=== PATIENT | female | born 1985 | race Caucasian/White ===

== ENCOUNTER 2017-10-07 16:10 | Emergency (ER) | payer OTHER, MEDICAID ==
[2016-10-26 10:45] VITALS: Ht 160 cm; Wt 86.2 kg
[~2017-10-07] VITALS: Ht 160 cm; Wt 86.2 kg
[~2017-10-07 16:10] MED LIST: AMOX-559 PO; BENZ100C4 PO; CODE118S5 PO; HYDR-4309 PO; IBUP600T22 PO; IBUP800T37 PO; LOR5 PO; LOR5/325 PO; METF-410 PO; ONDA4TAB PO; OSE75 PO; OXYC-865 PO; PER PO; PHEN-460 PO; PROC10TA4 PO
--- NOTE | 2017-10-07 16:15 | ER Report ---
History and Physical Time Seen By MD: 16:34 Hx. of Stated Complaint: right Shoulder pain HPI/ROS 32-year-old female states she was lifting a person had sudden pain in her right shoulder Allergies: Coded Allergies: aspirin (Verified Allergy, Severe, ANAPHYLAXIS, 12/23/16) Cephalexin Monohydrate (Verified Allergy, Mild, HIVES, 12/23/16) clarithromycin (Verified Allergy, Mild, HIVES, 12/23/16) Home Meds Active Scripts Ibuprofen (IBUPROFEN) 800 Mg Tablet, 1 TAB PO Q8H, #30 TAB Prov:EVA BEDOLLA 10/07/17 Discontinued Scripts Hydrocodone Bit/Acetaminophen (HYDROCODON-ACETAMINOPHEN 5-325) 1 Each Tablet, 1 EACH PO Q4H Y for PAIN, #12 TAB 0 Refills Prov:HERLINDA RODARTE MD 07/13/17 Amoxicillin/Pot Clav 875-125 Mg Tab (AUGMENTIN 875-125 TABLET) 1 Each Tablet, 1 TAB PO Q12H for 7 Days, #14 TAB 0 Refills Prov:HERLINDA RODARTE MD 07/13/17 Past Medical/Surgical History History of in the past Hx Smoking: Yes (1/2 PPD X 8 YRS ) Smoking Status: Current: Every Day Smoker Exposure to Second Hand Smoke?: Yes Hx Substance Use Disorder: No Family History of: HTN Constitutional Vital Sign - Last 24 Hours 10/07/17 16:18 Temp 97.8 Pulse 86 Resp 14 B/P (MAP) 140/94 Pulse Ox 96 O2 Delivery Room Air Physical Exam 32-year-old female alert and oriented mild distress HEENT head normocephalic/ atraumatic tympanic membranes are non-reddened throat is non-reddened neck is supple heart rate regular no murmurs rubs or gallops lungs clear to auscultation , right shoulder with pain with movement cms intact distally . Medical Decision Making EKG/Imaging Imaging FACILITY: [facility] PATIENT NAME: Mariana Escobedo : 1985 MR: [id number] V: [id number] EXAM DATE: [id number] ORDERING PHYSICIAN: EVA BEDOLLA TECHNOLOGIST: Location: [facility] Patient: Mariana Escobedo : 1985 Visit/Account:[id number] Date of Sevice: 10/07/2017 Exam type: SHOULDER MIN 2 VIEWS RIGHT History: Insert right shoulder while lifting at work, anterior pain Comparison: None. Findings: Two views of the right shoulder reveal no evidence of acute fracture dislocation or significant arthritic change. The right AC joint appears intact. IMPRESSION: 1. No acute osteoarticular abnormality of the right shoulder seen Report Dictated By: Tata Encarnacion MD at 10/07/2017 4:56 PM Report E-Signed By: Tata Encarnacion MD at 10/07/2017 4:57 PM WSN:[email or web address] ED Course/Re-evaluation ED Course given norco 2 po for pain xray is negative will put in sling rx for motrin and f /u pcp Re-evaluation pain is much better after norco Decision to Disposition Date: Oct 07, 2017 Decision to Disposition Time: 17:12 Depart Departure Latest Vital Signs Vital Signs Date Time Temp Pulse Resp B/P (MAP) Pulse Ox O2 Delivery O2 Flow Rate FiO2 10/07/17 16:18 97.8 86 14 140/94 96 Room Air Impression: Primary Impression: Right shoulder strain Condition: Improved Disposition: HOME OR SELF-CARE Referrals: JACKI HUERTA PA-C (PCP) 5 Days New Scripts Ibuprofen (IBUPROFEN) 800 Mg Tablet 1 TAB PO Q8H, #30 TAB Prov: EVA BEDOLLA 10/07/17 Patient Instructions: Muscle Strain (DC) Additional Instructions: Wear sling ice to shoulder 20 minutes 4 times a day follow-up give primary care physician if still having pain after one week EVA BEDOLLA Oct 07, 2017 16:15
[2017-10-07] MEDS ORDERED: APAP/HYDROCODONE 325/5 TAB PO ONE (16:35)
[2017-10-07 17:00] VITALS: BP 108/63
--- NOTE | 2017-10-07 17:01 | RADIOLOGY IMAGING REPORT ---
FACILITY: [facility] [place] PATIENT NAME: Mariana Escobedo : 1985 MR: [id number] V: [id number] EXAM DATE: ORDERING PHYSICIAN: EVA BEDOLLA TECHNOLOGIST: Location: [facility] Patient: Mariana Escobedo : 1985 Visit/Account:[id number] Date of Sevice: 10/07/2017 Exam type: SHOULDER MIN 2 VIEWS RIGHT History: Insert right shoulder while lifting at work, anterior pain Comparison: None. Findings: Two views of the right shoulder reveal no evidence of acute fracture dislocation or significant arthr itic change. The right AC joint appears intact. IMPRESSION: 1. No acute osteoarticular abnormality of the right shoulder seen Report Dictated By: Tata Encarnacion MD at 10/07/2017 4:56 PM Report E-Signed By: Tata Encarnacion MD at 10/07/2017 4:57 PM WSN:[email or web address]
[2017-10-07] MEDS ORDERED: IBUP800T37 PO (17:09)
== END 2017-10-07 17:18 | disposition home or self-care (01) ==
LOC: ER 16:24
DX: S46.911A Strain of unspecified muscle, fascia and tendon at shoulder and upper arm level, right arm, initial encounter (principal); X50.9XXA Other and unspecified overexertion or strenuous movements or postures, initial encounter
CPT/HCPCS: 73030; 99284; A4565

== ENCOUNTER 2017-11-02 17:47 | Emergency (ER) | payer MEDICAID, OTHER ==
[2016-10-26 10:45] VITALS: Wt 86.2 kg
--- NOTE | 2017-11-02 18:18 | ER Report ---
History and Physical Time Seen By MD: 18:17 Hx. of Stated Complaint: ALLERGY TO CATS. LEFT EYE SWOLLEN. MARIA EUGENIA NOT WORKING HPI/ROS CHIEF COMPLAINT: Left eye swelling and redness HISTORY OF PRESENT ILLNESS: 32-year-old female presents ambulatory to the ER complaining of the left eye swelling and redness. She woke up this way this morning. She reports no recent illness. She notes no visual changes. She notes no headache. She describes burning pain to the left side of her face and eye. She notes significant tearing and injection. She thinks is due to her having a cat. She describes foreign body sensation. She states she should be wearing glasses, but can't afford them. Patient showed shows a camera phone picture of her eye this morning in the upper lid was grossly swollen. It has resolved on examination now. REVIEW OF SYSTEMS: Respiratory: No cough, no dyspnea. Cardiovascular: No chest pain, no palpitations. Gastrointestinal: No vomiting, no abdominal pain. Musculoskeletal: No back pain. Allergies: Coded Allergies: aspirin (Verified Allergy, Severe, ANAPHYLAXIS, 11/02/17) Cephalexin Monohydrate (Verified Allergy, Mild, HIVES, 11/02/17) clarithromycin (Verified Allergy, Mild, HIVES, 11/02/17) Home Meds Active Scripts Ibuprofen (IBUPROFEN) 800 Mg Tablet, 1 TAB PO Q8H, #30 TAB Prov:EVA BEDOLLA 10/07/17 Reviewed Nurses Notes: Yes Old Medical Records Reviewed: Yes Hx Smoking: Yes (1/2 PPD X 8 YRS ) Smoking Status: Current: Every Day Smoker Exposure to Second Hand Smoke?: Yes Hx Substance Use Disorder: No Constitutional Vital Sign - Last 24 Hours 11/02/17 11/02/17 17:55 19:01 Temp 97.0 Pulse 82 85 Resp 14 16 B/P (MAP) 143/96 132/82 (99) Pulse Ox 99 96 O2 Delivery Room Air Room Air Physical Exam Vital signs stable, afebrile, pulse ox normal General Appearance: The patient is alert, has no immediate need for airway protection and no current signs of toxicity. No acute distress HEENT: Pupils equal and round. Fluoresceins was instilled in the left eye. There is gross injection with hyperemia of the lower lid. There were no corneal uptake or corneal abrasions noted TMs normal Respiratory: Chest is non tender, lungs are clear to auscultation. Cardiac: regular rate and rhythm Musculoskeletal: Neck: Neck is supple and non tender. No lymphadenopathy Extremities have full range of motion and are non tender. Skin: No rashes or lesions. DIFFERENTIAL DIAGNOSIS: After history and physical exam differential diagnosis was considered for conjunctivitis, allergic conjunctivitis, foreign body, corneal abrasion, iritis Medical Decision Making ED Course/Re-evaluation ED Course Patient was admitted to an examination room. H&P was done. The differential diagnoses was considered. On conical examination. Patient has an acutely red left eye. There is injection and tearing. There is no evidence of infection. She is afebrile. Patient be treated with Tobrex drops. She's given a single dose of prednisone 20 mg by mouth. She's discharged home with 2 Percocet for temporary pain relief. She is advised to continue ibuprofen and Benadryl. She is advised to follow-up with ophthalmology if unimproved in 2-3 days information was provided to contact ophthalmology. Decision to Disposition Date: Nov 02, 2017 Decision to Disposition Time: 18:39 Depart Departure Latest Vital Signs Vital Signs Date Time Temp Pulse Resp B/P (MAP) Pulse Ox O2 Delivery O2 Flow Rate FiO2 11/02/17 19:01 85 16 132/82 (99) 96 Room Air 11/02/17 17:55 97.0 Impression: Primary Impression: Allergic conjunctivitis of left eye Condition: Improved Disposition: HOME OR SELF-CARE Referrals: JACKI HUERTA PA-C (PCP) NONI JOHNSON MD Patient Instructions: Conjunctivitis (ED) Additional Instructions: Use Tobrex drops one to 2 drops 3 times a day for the next 3 days Continue ibuprofen 200 mg 3 tablets 3 times a day with food Continue Benadryl 25 mg 3 times a day Follow-up with Dr. Konstantin Johnson ribbon inker if unimproved in 3 days SOPHIA BOOKER DO Nov 02, 2017 18:18
[2017-11-02] MEDS ORDERED: FLUORESCEIN SOD 1 MG 1 EA STRP OS ONE (18:25)
[2017-11-02] MEDS ORDERED: TOBRAMYCIN/DEX OP SUSP 2.5 ML OS ONE (18:50)
[2017-11-02] MEDS ORDERED: predniSONE 20 MG TAB PO ONE (18:50)
[2017-11-02] MEDS ORDERED: oxyCODONE/ACETAMIN 5/325MG TH 2 TAB/BOTTLE PO ONE (18:50)
[2017-11-02 19:01] VITALS: BP 132/82
== END 2017-11-02 19:08 | disposition home or self-care (01) ==
LOC: ER 18:05
DX: H10.12 Acute atopic conjunctivitis, left eye (principal)
CPT/HCPCS: 99283; J7512

== ENCOUNTER 2018-03-16 14:26 | Emergency (ER) | payer MEDICAID ==
[2016-10-26 10:45] VITALS: Wt 86.2 kg
[~2018-03-16 14:26] MED LIST changes: -METF-410 PO; +METF-411 PO
[2018-03-16 14:29] VITALS: BP 135/85
--- NOTE | 2018-03-16 14:36 | ER Report ---
History and Physical Time Seen By MD: 14:36 Hx. of Stated Complaint: Sore throat x 3 days HPI/ROS CHIEF COMPLAINT: Sore throat HISTORY OF PRESENT ILLNESS: 33-year-old female patient presents to emergency room with complaint of sore throat. Patient states she's been having this pain for the past 3 days. She states that she has a history of strep throat. She states that she has not checked her temperature but was told by her that she felt feverish. She denies having any nausea, vomiting or diarrhea. Patient states she's had a slight cough. She is also noted some sinus Pressure. Patient has not taken any medication for this. She states she's not been having a hard time trying to eat or drink anything due to the pain. Last time she is something eat was last night. Allergies: Coded Allergies: aspirin (Verified Allergy, Severe, ANAPHYLAXIS, 03/16/18) Cephalexin Monohydrate (Verified Allergy, Mild, HIVES, 03/16/18) clarithromycin (Verified Allergy, Mild, HIVES, 03/16/18) Home Meds Active Scripts Promethazine HCl/Codeine (Prometh-Codein 6.25-10 mg/5 ml) 5 Ml Syrup, 1 TSP PO QHS Y for COUGH, #120 ML Prov:DIANA QUILES [facility] 03/16/18 Amoxicillin 500 Mg Tab (AMOXICILLIN 500 MG TAB) 500 Mg Tablet, 1 TAB PO BID, # 20 TAB Prov:DIANA QUILES [facility] 03/16/18 Discontinued Scripts Ibuprofen (IBUPROFEN) 800 Mg Tablet, 1 TAB PO Q8H, #30 TAB Prov:EVA BEDOLLA 10/07/17 Past Medical/Surgical History Patient has a past medical history of hypertension, asthma, cholecystitis, cervical cancer. Patient has a surgical history of a hysterectomy, , cholecystectomy, LEEP procedure, tubal ligation. Patient has a family medical history of cancer, stroke, diabetes. Reviewed Nurses Notes: Yes Hx Smoking: Yes (1/2 PPD X 8 YRS ) Smoking Status: Current: Every Day Smoker Exposure to Second Hand Smoke?: Yes Hx Substance Use Disorder: No Constitutional Vital Sign - Last 24 Hours 03/16/18 14:29 Temp 97.9 Pulse 87 Resp 16 B/P (MAP) 135/85 Pulse Ox 97 O2 Delivery Room Air Physical Exam General Appearance: The patient is alert, has no immediate need for airway protection and no current signs of toxicity. ENT: Tympanic membranes are pearly-parisi, auditory canals are patent, mucus mucous membranes are moist. Patient does have bilateral tonsillar exudate with tonsillar erythema. Respiratory: Chest is non tender, lungs are clear to auscultation. Cardiac: regular rate and rhythm DIFFERENTIAL DIAGNOSIS: After history and physical exam differential diagnosis was considered for strep throat, viral upper respiratory infection, pharyngitis. Medical Decision Making Data Points Laboratory Hematology Test 03/16/18 14:34 Group A Streptococcus Screen Positive (NEGATIVE) Chemistry Test 03/16/18 14:34 Group A Streptococcus Screen Positive (NEGATIVE) ED Course/Re-evaluation ED Course Patient was admitted to exam room, history and physical were obtained. Differential diagnoses were considered. On examination patient has bilateral tonsillar exudate, erythema. Strep screen was done which was positive for group A strep. Discussed the findings with the patient. We'll go ahead and treat her with amoxicillin 500 mg one tab by mouth twice a day 10 days #20. Patient also requests something for cough we will give her a promethazine with codeine so she can sleep a night. She is follow-up with her primary care provider next week. She is return to emergency room if condition worsens. Patient verbalized understanding and agreement with plan. Decision to Disposition Date: Mar 16, 2018 Decision to Disposition Time: 14:48 Depart Departure Latest Vital Signs Vital Signs Date Time Temp Pulse Resp B/P (MAP) Pulse Ox O2 Delivery O2 Flow Rate FiO2 03/16/18 14:29 97.9 87 16 135/85 97 Room Air Impression: Primary Impression: Strep pharyngitis Condition: Improved Disposition: HOME OR SELF-CARE Referrals: JACKI HUERTA PA-C (PCP) New Scripts Promethazine HCl/Codeine (Prometh-Codein 6.25-10 mg/5 ml) 5 Ml Syrup 1 TSP PO QHS Y for COUGH, #120 ML Prov: DIANA QUILES 03/16/18 Amoxicillin 500 Mg Tab (AMOXICILLIN 500 MG TAB) 500 Mg Tablet 1 TAB PO BID, #20 TAB Prov: DIANA QUILES 03/16/18 Patient Instructions: Strep Throat (ED) Additional Instructions: Increase fluid intake. Get plenty of rest. Take the antibiotics as directed. Return to the ER if condition worsens. Follow up with Nicole Huerta in the next week. DIANA QUILES [facility] Mar 16, 2018 14:36
[2018-03-16] MEDS ORDERED: AMOX500T10 PO (14:45)
[2018-03-16] MEDS ORDERED: PROM5SYR PO (14:45)
== END 2018-03-16 14:54 | disposition home or self-care (01) ==
LOC: ER 14:37
DX: J02.0 Streptococcal pharyngitis (principal)
CPT/HCPCS: 87081; 87880; 99282

== ENCOUNTER 2018-03-19 08:12 | Emergency (ER) | payer MEDICAID ==
[2016-10-26 10:45] VITALS: Wt 86.2 kg
[~2018-03-19 08:12] MED LIST changes: +AMOX500T10 PO; +PROM5SYR PO
--- NOTE | 2018-03-19 08:26 | ER Report ---
History and Physical Time Seen By MD: 08:26 Hx. of Stated Complaint: WORSENING SORE THROAT DESPITE ABT. HPI/ROS CHIEF COMPLAINT: sore throat HISTORY OF PRESENT ILLNESS: This is a 33 year old female. She was seen here three days ago for strep. Started on Guaifenesin with Codeine for cough and Amoxicillin for the strep. Still with severe pain. Is able to swallow water, but more difficult with food. No chest pain or shortness of breath. Allergies: Coded Allergies: aspirin (Verified Allergy, Severe, ANAPHYLAXIS, 03/19/18) Cephalexin Monohydrate (Verified Allergy, Mild, HIVES, 03/19/18) clarithromycin (Verified Allergy, Mild, HIVES, 03/19/18) Home Meds Active Scripts Hydrocodone Bit/Acetaminophen (HYDROCODON-ACETAMINOPHEN 5-325) 1 Each Tablet, 1 EACH PO Q4H Y for PAIN, #8 TAB 0 Refills Prov:HERLINDA RODARTE MD 03/19/18 Levofloxacin 500 Mg Tab (LEVAQUIN 500 MG TAB) 500 Mg Tablet, 500 MG PO QDAY, # 10 TAB 0 Refills Prov:HERLINDA RODARTE MD 03/19/18 Promethazine HCl/Codeine (Prometh-Codein 6.25-10 mg/5 ml) 5 Ml Syrup, 1 TSP PO QHS Y for COUGH, #120 ML Prov:DIANA QUILES 03/16/18 Amoxicillin 500 Mg Tab (AMOXICILLIN 500 MG TAB) 500 Mg Tablet, 1 TAB PO BID, # 20 TAB Prov:DIANA QUILES 03/16/18 Discontinued Scripts Ibuprofen (IBUPROFEN) 800 Mg Tablet, 1 TAB PO Q8H, #30 TAB Prov:EVA BEDOLLA 10/07/17 Reviewed Nurses Notes: Yes Hx Smoking: Yes (1/2 PPD X 8 YRS ) Smoking Status: Current: Every Day Smoker Exposure to Second Hand Smoke?: Yes Hx Substance Use Disorder: No Constitutional Vital Sign - Last 24 Hours 03/19/18 03/19/18 08:17 11:05 Temp 98.0 Pulse 84 70 Resp 18 16 B/P (MAP) 117/80 112/62 (79) Pulse Ox 98 94 O2 Delivery Room Air Room Air Intake and Output 03/19/18 03/19/18 03/20/18 14:59 22:59 06:59 Intake Total 1000 ml Balance 1000 ml Physical Exam General Appearance: The patient is alert, has no immediate need for airway protection and no current signs of toxicity. Eyes: Pupils equal and round no injection. ENT: Normal oral mucosa. Moist mucous membranes. Posterior oropharynx with erythema, small exudates. No asymmetry. Tympanic membranes are normal. Neck: Neck is supple, very tender to palpation, has submandibular and anterior cervical lymphadenopathy. Respiratory: Chest is non tender, lungs are clear to auscultation. Cardiac: regular rate and rhythm Skin: No rashes or lesions. DIFFERENTIAL DIAGNOSIS: After history and physical exam differential diagnosis was considered for sore throat, with failure of outpatient treatment, this could be a viral syndrome with colonization with strep which gave the positive strep test, that would be concerned about abscess although no asymmetry noted. Medical Decision Making EKG/Imaging Imaging EXAMINATION: CT neck with IV contrast HISTORY: Sore throat. TECHNIQUE: Axial soft tissue neck CT with IV contrast. Sagittal and coronal reformats. One of the following dose optimization techniques was utilized in the performance of this exam: Automated exposure control; adjustment of the mA and/ or kV according to the patient's size; or use of an iterative reconstruction technique. Specific details can be referenced in the facility's radiology CT exam operational policy. CONTRAST: 75 mL of IV Isovue-370 COMPARISON: None available. FINDINGS: Masses/lesions: Mildly enlarged tonsils and adenoids. No fluid collection. Airway: Normal. Lymph nodes: Negative. Vessels: Negative. Musculoskeletal / Body wall: Negative. Visualized orbits / brain / paranasal sinuses: Negative. Upper chest: Posterior right upper lobe consolidation. IMPRESSION: 1. Posterior right upper lobe consolidation suspicious for pneumonia. 2. Mildly enlarged tonsils and adenoids. This can be seen with infection and malignancy. Report Dictated By: Keny Pickering MD at 03/19/2018 9:58 AM ED Course/Re-evaluation Clinical Indication for ER IV: IV Access ED Course The patient had the CT scan ordered and an IV placed. She had good relief with the magic mouthwash. Still coughing. CT scan showed no sign of abscess in the neck/throat, but did show consolidation in the right upper lobe. We talked about treatment options. At this point, felt that she was stable with normal vital signs. She is feeling better. We decided to cover the pneumonia with Levaquin and have her finish the Amoxicillin. She has the rest of the magic mouthwash to use for pain and gave a prescription for Lortab as well. She was instructed to take these medicines, but to return to the ER for re-evaluation if she is worsening given the finding of pneumonia on the CT scan. She appears stable to treat as an outpatient. Decision to Disposition Date: Mar 19, 2018 Decision to Disposition Time: 10:38 Depart Departure Latest Vital Signs Vital Signs Date Time Temp Pulse Resp B/P (MAP) Pulse Ox O2 Delivery O2 Flow Rate FiO2 03/19/18 11:05 70 16 112/62 (79) 94 Room Air 03/19/18 08:17 98.0 Impression: Primary Impression: Strep pharyngitis Additional Impression: Pneumonia Referrals: JACKI HUERTA PA-C (PCP) New Scripts Hydrocodone Bit/Acetaminophen (HYDROCODON-ACETAMINOPHEN 5-325) 1 Each Tablet 1 EACH PO Q4H Y for PAIN, #8 TAB 0 Refills Prov: HERLINDA RODARTE MD 03/19/18 Levofloxacin 500 Mg Tab (LEVAQUIN 500 MG TAB) 500 Mg Tablet 500 MG PO QDAY, #10 TAB 0 Refills Prov: HERLINDA RODARTE MD 03/19/18 Patient Instructions: Community Acquired Pneumonia (ED) Additional Instructions: Start Levaquin 500mg once a day for 10 days. Use the magic mouthwash for sore throat, 1 teaspoon every 4 hours as needed for sore throat pain. Take Lortab 5/325, one every 4 hours as needed for pain. Problem Qualifiers Additional Impression: Pneumonia Pneumonia type: due to unspecified organism Laterality: right Lung location : upper lobe of lung Qualified Codes: J18.1 - Lobar pneumonia, unspecified organism HERLINDA RODARTE MD Mar 19, 2018 08:26
[2018-03-19] MEDS ORDERED: NS(*) 0.9% 1000 ML BAG 1,000 ML IV ONE (08:40)
[2018-03-19] MEDS ORDERED: MAG HYD/AL HYD/SIMETH 30ML UDC PO ONE (08:40)
[2018-03-19] MEDS ORDERED: LIDOCAINE 2% VISC SLN 15ML UDC PO ONE (08:40)
[2018-03-19] MEDS ORDERED: IOPAMIDOL 76% 100 ML INFUS BTL 100 ML ONE (09:11)
--- NOTE | 2018-03-19 10:10 | RADIOLOGY IMAGING REPORT ---
FACILITY: [facility] PATIENT NAME: Mariana Escobedo : 1985 MR: [id number] V: [id number] EXAM DATE: ORDERING PHYSICIAN: HERLINDA RODARTE TECHNOLOGIST: Location: [facility] [place] Patient: Mariana Escobedo : 1985 Visit/Account:[id number] Date of Sevice: 03/19/2018 EXAMINATION: CT neck with IV contrast HISTORY: Sore throat. TECHNIQUE: Axial soft tissue neck CT with IV contrast. Sagittal and coronal reformats. One of the following dose optimization techniques was utilized in the performance of this exam: Autom ated exposure control; adjustment of the mA and/or kV according to the patient's size; or use of an i terative reconstruction technique. Specific details can be referenced in the facility's radiology C T exam operational policy. CONTRAST: 75 mL of IV Isovue-370 COMPARISON: None available. FINDINGS: Masses/lesions: Mildly enlarged tonsils and adenoids. No fluid collection. Airway: Normal. Lymph nodes: Negative. Vessels: Negative. Musculoskeletal / Body wall: Negative. Visualized orbits / brain / paranasal sinuses: Negative. Upper chest: Posterior right upper lobe consolidation. IMPRESSION: 1. Posterior right upper lobe consolidation suspicious for pneumonia. 2. Mildly enlarged tonsils and adenoids. This can be seen with infection and malignancy. Report Dictated By: Keny Pickering MD at 03/19/2018 9:58 AM Report E-Signed By: Keny Pickering MD at 03/19/2018 10:06 AM WSN:[email or web address]
[2018-03-19] MEDS ORDERED: LEVO-85 PO (10:40)
[2018-03-19] MEDS ORDERED: LOR5/325 PO (10:40)
[2018-03-19 11:05] VITALS: BP 112/62
== END 2018-03-19 11:12 | disposition home or self-care (01) ==
LOC: ER 08:15
DX: J02.0 Streptococcal pharyngitis (principal); J18.1 Lobar pneumonia, unspecified organism
CPT/HCPCS: 70491; 96360; 99284; J7030; Q0163; Q9967

== ENCOUNTER 2018-07-05 10:06 | Emergency (ER) | payer MEDICAID ==
[2016-10-26 10:45] VITALS: Wt 95.3 kg
[~2018-07-05 10:06] MED LIST changes: -HYDR-4309 PO; +HYDR-653 PO; +LEVO-85 PO; -METF-411 PO; +METF-450 PO
[2018-07-05 10:30] VITALS: BP 124/81
[2018-07-05] MEDS ORDERED: CLINDAMYCIN 150 MG CAP PO ONE (10:35)
[2018-07-05] MEDS ORDERED: CLIN300C99 PO (10:40)
[2018-07-05] MEDS ORDERED: LOR5/325 PO (10:40)
--- NOTE | 2018-07-05 10:41 | ER Report ---
History and Physical Time Seen By MD: 10:09 Hx. of Stated Complaint: PT HAS TWO CRACKED TEETH ON THE LEFT UPPER SIDE. PT STATES SHE WOKE UP THIS MORNING WITH FACIAL SWELLING. PT HAS NOT SETUP AN APPOINTMENT WITH HER DENTIST. HPI/ROS CHIEF COMPLAINT: Dental pain HISTORY OF PRESENT ILLNESS: Patient is a 33-year-old female who presents emergency Department with complaint of swelling to the left part of her face. She states that she has 2 fractured teeth but has yet to make an appointment with the dentist. His morning she woke up with increasing dental pain and facial swelling. She denies any double vision. She denies any fevers or chills. She denies difficulty swallowing Allergies: Coded Allergies: aspirin (Verified Allergy, Severe, ANAPHYLAXIS, 03/19/18) Cephalexin Monohydrate (Verified Allergy, Mild, HIVES, 03/19/18) clarithromycin (Verified Allergy, Mild, HIVES, 03/19/18) Home Meds Active Scripts Naproxen Sodium (ALEVE) 220 Mg Capsule, 440 MG PO TID, #30 CAPSULE Prov:CARMELO EDWARDS DO 07/08/18 Tramadol Hcl (TRAMADOL HCL) 50 Mg Tablet, 50 MG PO Q6H PRN for PAIN, #12 TAB 0 Refills Prov:CARMELO EDWARDS DO 07/08/18 Clindamycin Hcl (CLINDAMYCIN HCL) 300 Mg Capsule, 300 MG PO Q6H, #40 CAPSULE 0 Refills Prov:MEY JACKSON MD 07/05/18 Hydrocodone Bit/Acetaminophen (HYDROCODON-ACETAMINOPHEN 5-325) 1 Each Tablet, 1 EACH PO Q4-6H PRN for PAIN, #12 TAB 0 Refills TAKE ONE TABLET BY MOUTH EVERY 4-6 HOURS NEEDED FOR PAIN Prov:MEY JACKSON MD 07/05/18 Discontinued Scripts Hydrocodone Bit/Acetaminophen (HYDROCODON-ACETAMINOPHEN 5-325) 1 Each Tablet, 1 EACH PO Q4H PRN for PAIN, #8 TAB 0 Refills Prov:HERLINDA RODARTE MD 03/19/18 Levofloxacin 500 Mg Tab (LEVAQUIN 500 MG TAB) 500 Mg Tablet, 500 MG PO QDAY, #10 TAB 0 Refills Prov:HERLINDA RODARTE MD 03/19/18 Promethazine HCl/Codeine (Prometh-Codein 6.25-10 mg/5 ml) 5 Ml Syrup, 1 TSP PO QHS PRN for COUGH, #120 ML Prov:DIANA QUILES COM[employer]ED [employer]ANT WORKER 03/16/18 Amoxicillin 500 Mg Tab (AMOXICILLIN 500 MG TAB) 500 Mg Tablet, 1 TAB PO BID, #20 TAB Prov:DIANA QUILES [employer] WORKER 03/16/18 Past Medical/Surgical History Noncontributory Hx Smoking: Yes (1/2 PPD X 8 YRS ) Smoking Status: Current: Every Day Smoker Exposure to Second Hand Smoke?: Yes Hx Substance Use Disorder: No Constitutional Vital Sign - Last 24 Hours 07/05/18 07/05/18 10:09 10:30 Temp 99.2 Pulse 113 Resp 16 B/P (MAP) 136/89 124/81 (95) Pulse Ox 95 O2 Delivery Room Air Physical Exam General Appearance: alert, nontoxic Eyes: Pupils equal and round no pallor or injection. ENT, Mouth: Ears: Tympanic membranes are normal. Nose: No bleeding. Mouth: Mucous membranes are moist. Fractures to the 2nd and 3rd left maxillary molars. Gingival inflammation without abscess Throat: No erythema or exudates there is no tonsillar hypertrophy and uvula is midline. Musculoskeletal: Neck is supple non tender, no adenopathy. Skin: Warm and dry, no rashes. [ ] Medical Decision Making ED Course/Re-evaluation ED Course 07/05/2018 10:37:53 am patient with dental infection. Plan will be oral clindamycin pain medicine and referral to her tenderness which is [facility] Decision to Disposition Date: Jul 05, 2018 Decision to Disposition Time: 10:38 Depart Departure Latest Vital Signs Vital Signs Date Time Temp Pulse Resp B/P (MAP) Pulse Ox O2 Delivery O2 Flow Rate FiO2 07/05/18 10:30 124/81 (95) 07/05/18 10:09 99.2 113 16 95 Room Air Impression: Primary Impression: Infected dental caries Condition: Improved Disposition: HOME OR SELF-CARE Referrals: JACKI HUERTA PA-C (PCP) New Scripts Clindamycin Hcl (CLINDAMYCIN HCL) 300 Mg Capsule 300 MG PO Q6H, #40 CAPSULE 0 Refills Prov: MEY JACKSON MD 07/05/18 Hydrocodone Bit/Acetaminophen (HYDROCODON-ACETAMINOPHEN 5-325) 1 Each Tablet 1 EACH PO Q4-6H PRN for PAIN, #12 TAB 0 Refills TAKE ONE TABLET BY MOUTH EVERY 4-6 HOURS NEEDED FOR PAIN Prov: MEY JACKSON MD 07/05/18 Patient Instructions: Dental Caries (DC) Additional Instructions: Call [facility] Friday to schedule an appointment for treatment of your dental infection Take your antibiotics until completed MEY JACKSON MD Jul 05, 2018 10:41
== END 2018-07-05 10:50 | disposition home or self-care (01) ==
LOC: ER 10:34
DX: K02.9 Dental caries, unspecified (principal); K08.89 Other specified disorders of teeth and supporting structures
CPT/HCPCS: 99283

== ENCOUNTER 2018-07-08 16:18 | Emergency (ER) | payer MEDICAID ==
[2016-10-26 10:45] VITALS: Wt 95.3 kg
[~2018-07-08 16:18] MED LIST changes: +CLIN300C99 PO
--- NOTE | 2018-07-08 16:23 | ER Report ---
History and Physical Time Seen By MD: 16:23 HPI/ROS CHIEF COMPLAINT: Left upper dental abscess HISTORY OF PRESENT ILLNESS: Patient is a 33-year-old female here with complaints of left upper dental pain after being seen several days ago for left-sided facial swelling. Patient is currently on clindamycin for antimicrobial coverage by reports that she developed an increasing dental abscess since time of onset. Patient is afebrile since time of onset, hemodynamically stable. She reports worsening pain in spite of taking [id number] medications. REVIEW OF SYSTEMS: Constitutional: No fever, no chills. Eyes: No discharge. ENT: + Left upper dental pain with associated dental abscess and pain Skin: No rashes. Neurological: No headache, no cranial nerve deficits Allergies: Coded Allergies: aspirin (Verified Allergy, Severe, ANAPHYLAXIS, 03/19/18) Cephalexin Monohydrate (Verified Allergy, Mild, HIVES, 03/19/18) clarithromycin (Verified Allergy, Mild, HIVES, 03/19/18) Home Meds Active Scripts Naproxen Sodium (ALEVE) 220 Mg Capsule, 440 MG PO TID, #30 CAPSULE Prov:CARMELO EDWARDS DO 07/08/18 Tramadol Hcl (TRAMADOL HCL) 50 Mg Tablet, 50 MG PO Q6H PRN for PAIN, #12 TAB 0 Refills Prov:CARMELO EDWARDS DO 07/08/18 Clindamycin Hcl (CLINDAMYCIN HCL) 300 Mg Capsule, 300 MG PO Q6H, #40 CAPSULE 0 Refills Prov:MEY JACKSON MD 07/05/18 Hydrocodone Bit/Acetaminophen (HYDROCODON-ACETAMINOPHEN 5-325) 1 Each Tablet, 1 EACH PO Q4-6H PRN for PAIN, #12 TAB 0 Refills TAKE ONE TABLET BY MOUTH EVERY 4-6 HOURS NEEDED FOR PAIN Prov:MEY JACKSON MD 07/05/18 Discontinued Scripts Hydrocodone Bit/Acetaminophen (HYDROCODON-ACETAMINOPHEN 5-325) 1 Each Tablet, 1 EACH PO Q4H PRN for PAIN, #8 TAB 0 Refills Prov:HERLINDA RODARTE MD 03/19/18 Levofloxacin 500 Mg Tab (LEVAQUIN 500 MG TAB) 500 Mg Tablet, 500 MG PO QDAY, #10 TAB 0 Refills Prov:HERLINDA RODARTE MD 03/19/18 Promethazine HCl/Codeine (Prometh-Codein 6.25-10 mg/5 ml) 5 Ml Syrup, 1 TSP PO QHS PRN for COUGH, #120 ML Prov:DIANA QUILES LOGISTICS OPERATIONS DIRECTOR 03/16/18 Amoxicillin 500 Mg Tab (AMOXICILLIN 500 MG TAB) 500 Mg Tablet, 1 TAB PO BID, #20 TAB Prov:DIANA QUILES LOGISTICS OPERATIONS DIRECTOR 03/16/18 Hx Smoking: Yes (1/2 PPD X 8 YRS ) Smoking Status: Current: Every Day Smoker Exposure to Second Hand Smoke?: Yes Hx Substance Use Disorder: No Constitutional Vital Sign - Last 24 Hours 07/08/18 16:21 Temp 98.2 Pulse 75 Resp 20 Pulse Ox 97 O2 Delivery Room Air Physical Exam General Appearance: The patient is alert, has no immediate need for airway protection and no signs of toxicity. Mild distress secondary to pain Eyes: Pupils equal and round no pallor or injection. ENT, Mouth: + 2 cm dental abscess on left upper ginivae with tenderness on exam Neurological: No cranial nerve deficits Skin: Warm and dry, no rashes. DIFFERENTIAL DIAGNOSIS: After history and physical exam differential diagnosis was considered for dental abscess, gingivitis Medical Decision Making ED Course/Re-evaluation ED Course Patient is a 33-year-old female here with complaints of left upper dental pain with a dental abscess located adjacent to the dental gingiva. Patient reports that the abscess formed in spite of being on clindamycin of the past day. She was seen 2 days ago in the emergency department placed on clindamycin. Patient reports worsening pain however she does note decreased swelling of the left side of her face. I performed a dental block of the superior alveolar nerve and a local block into the abscess. I used an 18-gauge needle to remove approximately 3 mL of purulent material from the site. Patient was given scripts for naproxen, tramadol for pain control and advised to continue taking clindamycin and to follow-up with her PCP and dentistry. Patient was advised to return promptly if she develop worsening pain, increased swelling, fevers, visual disturbances, difficulty swallowing or breathing. Procedure Dental abscess was identified on the patient's left upper premolars adjacent in the gingiva. Abscess was approximately 1.5 cm in diameter. A superior alveolar dental block was performed using approximately 2 mL of bupivacaine with epinephrine. Approximately 1.5 mL of bupivacaine with epinephrine was injected directly into the abscess for local anesthesia. An 18-gauge needle was used to aspirate approximately 3 mL of purulent material from the abscess. Patient was given a piece of gauze to express remaining purulent material from the abscess. Hemostasis was achieved. Patient tolerated the procedure well. Decision to Disposition Date: Jul 08, 2018 Decision to Disposition Time: 17:00 Depart Departure Latest Vital Signs Vital Signs Date Time Temp Pulse Resp B/P (MAP) Pulse Ox O2 Delivery O2 Flow Rate FiO2 07/08/18 16:21 98.2 75 20 97 Room Air Impression: Primary Impression: Dental abscess Condition: Improved Disposition: HOME OR SELF-CARE Referrals: JACKI HUERTA PA-C (PCP) New Scripts Naproxen Sodium (ALEVE) 220 Mg Capsule 440 MG PO TID, #30 CAPSULE Prov: CARMELO EDWARDS DO 07/08/18 Tramadol Hcl (TRAMADOL HCL) 50 Mg Tablet 50 MG PO Q6H PRN for PAIN, #12 TAB 0 Refills Prov: CARMELO EDWARDS DO 07/08/18 Patient Instructions: Dental Abscess (ED) Additional Instructions: You may take naproxen up to 500 mg twice daily for pain control. You may take 1 tablet of tramadol every 6-8 hours as needed for breakthrough pain control. Please do not drive or drink while on this medication as it may make you drowsy. Please continue to take your clindamycin. Please follow-up with dentistry in the next 3 days. Please return promptly if you develop worsening pain, fevers, facial swelling, difficulty swallowing, difficulty breathing, high pain. CARMELO EDWARDS DO Jul 08, 2018 16:23
[2018-07-08] MEDS ORDERED: KETOROLAC 60 MG/2 ML VIAL IM ONE (16:40)
[2018-07-08] MEDS ORDERED: NAPR220C12 PO (16:47)
[2018-07-08] MEDS ORDERED: TRAM-420 PO (16:47)
== END 2018-07-08 17:00 | disposition home or self-care (01) ==
LOC: ER 16:55
DX: K04.7 Periapical abscess without sinus (principal)
CPT/HCPCS: 41800; 99283; J1885

== ENCOUNTER → 2018-11-26 | Outpatient (CLI) | payer MEDICAID ==
[2016-10-26 10:45] VITALS: BMI 37.8
[~2018-11-26] MED LIST changes: +NAPR220C12 PO; +TRAM-420 PO
--- NOTE | 2018-11-26 15:07 | RADIOLOGY IMAGING REPORT ---
FACILITY: [facility] PATIENT NAME: HANDY CHRISTIANSON : [id number] MR: [id number] V: [id number] EXAM DATE: [id number] ORDERING PHYSICIAN: JACKI HUERTA TECHNOLOGIST: Ashtyn Umanzor PROCEDURE:BILATERAL DIAGNOSTIC DIGITAL MAMMOGRAM WITH CAD ASSISTED INTERPRETATION & 3D TOMOSYNTHESIS COMPARISON:None. INDICATIONS:Palpable Left breast lump & lateral Right breast pain. FINDINGS: There are scattered areas of fibroglandular density throughout the breasts. There is no demonstration of malignant appearing mass, malignant appearing calcification or other secondary sign of malignancy in either breast. Today's bilateral breast Ultrasound also revealed no abnormality. Therefore, clinical follow up recommended for patient's palpable findings. DIAGNOSTIC CATEGORY 1--NEGATIVE. RECOMMENDATIONS: CLINICAL EVALUATION. IMPRESSION: BIRADS 1: Negative. No sonographic or mammographic abnormalities identified to account for patient's palpable findings. Therefore, clinical follow up recommended. Dictated by: Tata Encarnacion M.D. on 11/26/2018 at 14:32 Transcribed by: DUSTIN on 11/26/2018 at 14:52 Approved by: Tata Encarnacion M.D. on 11/26/2018 at 15:05 [facility]
--- NOTE | 2018-11-26 15:07 | RADIOLOGY IMAGING REPORT ---
[place] [facility] [place] NAME: HANDY CHRISTIANSON : [id number] MR: [id number] V: [id number] EXAM DATE: ORDERING PHYSICIAN: JACKI HUERTA TECHNOLOGIST: Aamir Ruiz RDMS, SHAHRZAD PROCEDURE:US BILATERAL BREAST COMPARISON:None. INDICATIONS:PAIN IN THE OUTER RIGHT BREAST & OUTER LEFT BREAST LUMP FINDINGS: The lateral aspect of the Right breast was imaged from the 6 - 12 o'clock position in the location of the patient's pain revealing no sonographic abnormality. The Left breast was imaged from the 12-6 o'clock position in location of patient's palpable lump which was apparently in the upper outer quadrant. No sonographic correlate identified. Therefore, clinical follow up recommended. DIAGNOSTIC CATEGORY 1--NEGATIVE. RECOMMENDATIONS: CLINICAL EVALUATION. IMPRESSION: BIRADS 1: Negative. No sonographic or mammographic abnormality identified to account for patient's palpable findings. Therefore, clinical follow up recommended. Dictated by: Tata Encarnacion M.D. on 11/26/2018 at 14:30 Transcribed by: DUSTIN on 11/26/2018 at 14:56 Approved by: Tata Encarnacion M.D. on 11/26/2018 at 15:06 [facility]
== END ==
LOC: MAMO 00:17
PROVIDERS: ATTEND Physician Assistant
DX: N64.4 Mastodynia (principal); N60.01 Solitary cyst of right breast; N60.02 Solitary cyst of left breast
CPT/HCPCS: 77062; 77066